=== PATIENT | female | born 1965 | race Caucasian/White ===

== ENCOUNTER 2016-07-17 19:51 | Emergency (ER) | payer SELFPAY ==
[2016-07-17 21:06] VITALS: BP 179/99
== END 2016-07-17 21:06 | disposition home or self-care (01) ==
LOC: ED 19:51
DX: S61.052A Open bite of left thumb without damage to nail, initial encounter (principal); S60.812A Abrasion of left wrist, initial encounter; J45.909 Unspecified asthma, uncomplicated; S61.032A Puncture wound without foreign body of left thumb without damage to nail, initial encounter; Z91.018 Allergy to other foods; W55.01XA Bitten by cat, initial encounter; Y93.89 Activity, other specified; Y99.8 Other external cause status; Y92.89 Other specified places as the place of occurrence of the external cause
CPT/HCPCS: J1885

== ENCOUNTER 2019-12-12 20:25 | Emergency (ER) | payer OTHER ==
[~2019-12-12] VITALS: Ht 165.1 cm; Wt 104.6 kg
[2019-12-12 20:30] VITALS: Ht 165.1 cm; Wt 104.6 kg
[2019-12-12 21:04] LABS: BASOPHIL % 1.2 % (0-2); PLATELET COUNT 345 x10^3mcL (130-400); RED CELL DISTRIBUTION WIDTH 12.5 % (11.5-14.5)
[2019-12-12 21:05] LABS: microscopic required? YES; urine erythrocyte NEGATIVE (NEGATIVE)
[2019-12-12 21:08] LABS: CARBON DIOXIDE 25.6 mmol/L (21-32); CHLORIDE SERUM 98 mmol/L (98-107); CREATININE SERUM 0.7 mg/dL (0.6-1.0); GFR1 > 60 mL/min; GLUCOSE SERUM 112 mg/dL (74-106); POTASSIUM SERUM 3.3 mmol/L (3.5-5.1); SODIUM SERUM 133 mmol/L (136-145)
[2019-12-12 21:12] LABS: ALBUMIN 3.5 g/dL (3.4-5.0); ALKALINE PHOSPHATASE 70 U/L (46-116); ALT/SGPT 39 U/L (14-59); AMYLASE 43 U/L (25-115); AST/SGOT 16 U/L (15-37); BILIRUBIN TOTAL 0.34 mg/dL (0.20-1.00); LIPASE 167 IU/L (73-393); TOTAL PROTEIN, SERUM 8.1 g/dL (6.4-8.2)
[2019-12-13 00:34] VITALS: BP 124/82
== END 2019-12-13 00:34 | disposition home or self-care (01) ==
LOC: ED 20:25
PROVIDERS: Emergency Medicine
DX: K57.92 Diverticulitis of intestine, part unspecified, without perforation or abscess without bleeding (principal)
CPT/HCPCS: J1885; J2543